=== PATIENT | female | born 1960 | race Caucasian/White ===

== ENCOUNTER 2016-11-05 21:21 | Observation (INO) | payer OTHER ==
--- NOTE | 2016-11-05 21:41 | CPEKG ---
Heart Rate: 74 RR Interval: 811 P-R Interval: 100 QRSD Interval: 78 QT Interval: 384 QTC Interval: 426 P Girdletree: 18 QRS Girdletree: 66 T Wave Gird[place]ree: 14 EKG Severity - BORDERLINE ECG - EKG Impression: SINUS RHYTHM EKG Impression: SHORT TN INTERVAL, ACCELERATED AV CONDUCTION Electronically Signed By: Edy Leiva 05-Nov-2016 23:54:56
--- NOTE | 2016-11-05 21:43 | EDPHY ---
H & P Stated Complaint: cp off and on x 4 days, fever, vomiting HPI/ROS: HPI CHIEF COMPLAINT: Chest pain, nausea, vomiting HISTORY OF PRESENT ILLNESS: this patient very pleasant 56-year-old female, significant past medical history for GERD, significant reflux however status post laparoscopic placement of a "link device" that prevents her from getting reflux. Patient presents emergency room with intermittent initially sharp stabbing substernal pain nonradiating she states on Friday this initially started. patient states that she had brief episodes of sharp stabbing pain she took ibuprofen and this went away on Friday it reoccurred on Friday she again took more ibuprofen and it went away. she tells me tonight around 630 she started developing nausea with acute onset of non bloody vomit, had 2 separate episodes of this 1 at 6:31 a.m. at 8:30 a.m., she began having ongoing nausea and then developed this chest pressure dull ache in the center of her chest. She still tells me that she has a heavy sensation in her chest. Denies radiation pain specifically jaw pain, neck pain, arm pain. Currently at this time she does have a heaviness in her chest with associated nausea.Denies any significant history of cardiac disease or CVA. Past Medical History: GERD Past Surgical History: , laparoscopic placement of a links device for reflux Social History: denies use of drugs alcohol tobacco products Family History: noncontributory ROS REVIEW OF SYSTEMS: A comprehensive 10 point review of systems is otherwise negative aside from elements mentioned in the history of present illness. Exam Constitutional triage nursing summary reviewed, vital signs reviewed, awake/ alert. Eyes normal conjunctivae and sclera, EOMI, PERRLA. HENT normal inspection, atraumatic, moist mucus membranes, no epistaxis, neck supple/ no meningismus, no raccoon eyes. Respiratory clear to auscultation bilaterally, normal breath sounds, no respiratory distress, no wheezing. Cardiovascular rate normal, regular rhythm, no murmur, no edema, distal pulses normal. Gastrointestinal soft, non-tender, no rebound, no guarding, normal bowel sounds, no distension, no pulsatile mass. Genitourinary no CVA tenderness. Musculoskeletal no midline vertebral tenderness, full range of motion, no calf swelling, no tenderness of extremities, no meningismus, good pulses, neurovascularly intact. Skin pink, warm, & dry, no rash, skin atraumatic. Neurologic awake, alert and oriented x 3, AAOx3, moves all 4 extremities equally, motor intact, sensory intact, CN II-XII intact, normal cerebellar, normal vision, normal speech. Psychiatric normal mood/affect. Heme/Lymph/Immune no lymphadenopathy. Differential diagnosis includes but is not limited to: ACS, atypical chest pain , pneumothorax, pneumonia, pulmonary embolism, aortic dissection, congestive heart failure, tumor, musculoskeletal pain, esophageal pain, GERD, peptic ulcer disease, pancreatitis Medical Decision Making:This patient had an IV established obtain blood work including cardiac marker troponin, EKG, chest x-ray showed an evaluation for ACS. She will be given a dose of nitro to see if this helps with her nausea and chest pressure. Re-evaluation: EKG interpretation by me on record in [employer] system. Impression Time of EKG 11/22/1940 this is sinus rhythm rate of 74, short DE interval otherwise unremarkable no acute ischemic changes specifically no ST elevation, ST depression, T-wave abnormality. ED x-ray chest: Hyperinflated lung goddard, good lung goddard, mediastinum narrow , cardiac silhouette normal, I do see the Links in the epigastric region. otherwise unremarkable. 2257: Re-evaluation at this time patient is resting comfortably are abdomen is soft nontender no guarding or peritoneal signs. Her EKG does not indicate acute ischemia. D-dimer and troponin are pending. I have admitted this patient to the hospitalist service Dr. epps for nausea, intermittent vomiting, and a pressure dull ache sensation in her chest. She did receive nitroglycerin which did not change her discomfort in her chest. 2307: I did speak with the patient and at bedside and they understand plan for admission is for chest pain evaluation serial enzymes ACS rule out. No indication at this time that she is having acute SC. I do not have a great explanation for nausea, 2 episodes of vomiting and chest pressure discomfort. After 2 mg IV morphine her chest pressure is gone she is now chest pain free. It is noted her troponin was negative EKG nonischemic her D-dimer is pending. Dr. Epps has accepted the admission to the hospitalist service. Patient be admitted for observation chest pain evaluation. Source: Patient - Personal History Current Tetanus Diphtheria and Acellular Pertussis (TDAP): Yes - Medical/Surgical History Hx Asthma: No Hx Chronic Respiratory Disease: No Hx Diabetes: No Hx Cardiac Disease: No Hx Renal Disease: No Hx Cirrhosis: No Hx Alcoholism: No Hx HIV/AIDS: No Hx Splenectomy or Spleen Trauma: No Other PMH: linx plate in esohopheal sphinter for GERD - Social History Smoking Status: Never smoked Constitutional: Initial Vital Signs Temperature (C) 37.4 C 11/05/16 21:24 Heart Rate 90 11/05/16 21:24 Respiratory Rate 20 11/05/16 21:24 Blood Pressure 132/89 H 11/05/16 21:24 O2 Sat (%) 93 11/05/16 21:24 O2 Delivery Mode Room Air Allergies/Adverse Reactions: erythromycin base Allergy (Verified 11/05/16 21:23) Home Medications: Medication Instructions Recorded Acyclovir [Zovirax 400 mg (*)] 400 mg PO BID PRN 11/06/16 Calcium Carbonate [Tums 500MG (*)] 500 mg PO TID PRN #0 tabchew 11/06/16 Herbals/Supplements -Info Only 1 ea PO DAILY 11/06/16 Multivitamins [Multivitamin (*)] 1 each PO DAILY 11/06/16 [place]-3 Fatty Acids [Fish Oil 1000 1,000 mg PO DAILY 11/06/16 mg (*)] Pantoprazole Sodium [Protonix 40mg 40 mg PO DAILY #30 tab 11/06/16 (*)] Medical Decision Making - Data Points Laboratory Results: Laboratory Results 11/05/16 22:00 11/05/16 22:00 Medications Given: Discontinued Medications Aspirin (Aspirin) 324 mg PO EDNOW ONE Stop: 11/05/16 23:00 Last Admin: 11/05/16 23:07 Dose: 324 mg Aspirin Buffered (Aspirin Ec) 325 mg PO ONCALL ONE Stop: 11/06/16 13:07 Last Admin: 11/06/16 15:50 Dose: Not Given Diazepam (Valium) 5 mg PO ONCALL ONE Stop: 11/06/16 13:07 Last Admin: 11/06/16 15:51 Dose: Not Given Diphenhydramine HCl (Benadryl) 25 mg PO ONCALL ONE Stop: 11/06/16 13:07 Last Admin: 11/06/16 15:51 Dose: Not Given Famotidine (Pepcid) 20 mg PO ONCALL ONE Stop: 11/06/16 13:07 Last Admin: 11/06/16 15:51 Dose: Not Given Sodium Chloride (Ns) 1,000 mls @ 0 mls/hr IV ONCE ONE PRN Reason: As Directed Stop: 11/05/16 21:45 Last Admin: 11/05/16 22:00 Dose: 1,000 mls Sodium Chloride (Ns) 1,000 mls @ 0 mls/hr IV ONCALL ONE PRN Reason: TKO Stop: 11/06/16 13:07 Last Admin: 11/06/16 15:51 Dose: Not Given Morphine Sulfate (Morphine) 2 mg IVP EDNOW ONE Stop: 11/05/16 22:30 Last Admin: 11/05/16 22:34 Dose: 2 mg Nitroglycerin (Nitrostat) 0.4 mg SL EDNOW ONE Stop: 11/05/16 21:59 Last Admin: 11/05/16 22:09 Dose: 0.4 mg Ondansetron HCl (Zofran) 4 mg IVP EDNOW ONE Stop: 11/05/16 21:59 Last Admin: 11/05/16 22:01 Dose: 4 mg Departure - Departure Disposition: [facility] Acute Clinical Impression: Chest pain Qualifiers: Chest pain type: unspecified Qualifier Code: (R07.9) Chest pain, unspecified Condition: Good
[2016-11-05] MEDS ORDERED: NS 1,000 ML IV ONE (21:44)
[2016-11-05] MEDS ORDERED: NITROGLYCERIN 0.4 MG BTL SL ONE (21:58)
[2016-11-05] MEDS ORDERED: ONDANSETRON 4 MG/2 ML VIAL IVP ONE (21:58)
[2016-11-05 22:27] LABS: % IMMATURE GRANULYOCYTES 0.3 % (0.0-1.1); ABSOLUTE IMMATURE GRANULOCYTES 0.02 10^3/uL (0.00-0.10); ADD DIFF? NO; ADD MORPH? NO; ADD SCAN? NO; ATYPICAL LYMPHOCYTE FLAG 0 (0-99); FRAGMENT RBC FLAG 0 (0-99); HEMATOCRIT 41.3 % (38.0-47.0); HEMOGLOBIN 14.3 g/dL (12.6-16.3); LEFT SHIFT FLG 0 (0-99); LIPEMIA HEMOLYSIS FLAG 90 (0-99); MEAN CELL HEMOGLOBIN CONCENTR. 34.6 g/dL (32.4-36.7); MEAN CELL VOLUME 83.8 fL (81.5-99.8); MEAN PLATELET VOLUME 9.3 fL (8.7-11.7); PLATELET CLUMPS FLAG 0 (0-99); PLATELET COUNT 220 10^3/uL (150-400); RED BLOOD CELL COUNT 4.93 10^6/uL (4.18-5.33); RED CELL DISTRIBUTION WIDTH 12.2 % (11.5-15.2)
[2016-11-05 22:33] LABS: ALANINE AMINOTRANSFERASE 33 IU/L (9-52); ALBUMIN 4.1 g/dL (3.5-5.0); ALKALINE PHOSPHATASE 64 IU/L (38-126); ANION GAP 12 mEq/L (8-16); ASPARTATE AMINOTRANSFERASE 21 IU/L (14-46); BILIRUBIN,TOTAL 0.7 mg/dL (0.1-1.4); BILIRUBIN-CONJUGATED 0.2 mg/dL (0.0-0.5); BILIRUBIN-UNCONJUGATED 0.5 mg/dL (0.0-1.1); CALCIUM 9.4 mg/dL (8.5-10.4); CARBON DIOXIDE 24 mEq/l (22-31); CHLORIDE 104 mEq/L (97-110); CREATININE 0.6 mg/dL (0.6-1.0); GLOMERULAR FILTRATION RATE > 60; GLUCOSE 106 mg/dL (70-100); MAGNESIUM 2.1 mg/dL (1.6-2.3); POTASSIUM 3.8 mEq/L (3.5-5.2); SODIUM 140 mEq/L (134-144); TOTAL PROTEIN 6.8 g/dL (6.3-8.2)
[2016-11-05 22:36] LABS: INR 1.12 (0.83-1.16); PROTIME(PATIENT) 14.3 SEC (12.0-15.0)
[2016-11-05 22:37] LABS: APTT 25.9 SEC (23.0-38.0)
[2016-11-05 22:45] LABS: CREATINE KINASE-MB FRACTION 0.66 ng/mL (0-3.19); TROPONIN I < 0.012 ng/mL (0-0.034)
[2016-11-05] MEDS ORDERED: ASPIRIN 81 MG CHEWABLE TAB PO ONE (22:59)
--- NOTE | 2016-11-05 23:29 | DX ---
Portable Chest, Single View November 05, 2016 Indication: Chest pain for 3 days. Findings: The lungs are clear. No pneumothorax, edema, consolidation or effusion. Heart size within n ormal limit for degree of inspiration. Several round radiodensities overlying the left upper abdomen are likely external to the patient. Impression: Negative portable chest.
[2016-11-06] MEDS ORDERED: HYDROCODONE/APAP 5/325 TAB PO PRN (02:24)
[2016-11-06] MEDS ORDERED: ONDANSETRON 4 MG/2 ML VIAL IVP PRN (02:24)
[2016-11-06] MEDS ORDERED: ONDANSETRON DISINTEGRATING 4 MG TAB PO PRN (02:24)
[2016-11-06] MEDS ORDERED: ACETAMINOPHEN 325 MG TAB PO PRN (02:24)
[2016-11-06 05:01] LABS: % IMMATURE GRANULYOCYTES 0.2 % (0.0-1.1); ABSOLUTE IMMATURE GRANULOCYTES 0.01 10^3/uL (0.00-0.10); ADD DIFF? NO; ADD MORPH? NO; ADD SCAN? NO; ATYPICAL LYMPHOCYTE FLAG 0 (0-99); FRAGMENT RBC FLAG 0 (0-99); HEMATOCRIT 38.4 % (38.0-47.0); HEMOGLOBIN 12.9 g/dL (12.6-16.3); LEFT SHIFT FLG 0 (0-99); LIPEMIA HEMOLYSIS FLAG 80 (0-99); MEAN CELL HEMOGLOBIN 29.4 pg (27.9-34.1); MEAN CELL HEMOGLOBIN CONCENTR. 33.6 g/dL (32.4-36.7); MEAN CELL VOLUME 87.5 fL (81.5-99.8); MEAN PLATELET VOLUME 9.7 fL (8.7-11.7); PLATELET CLUMPS FLAG 10 (0-99); PLATELET COUNT 196 10^3/uL (150-400); RED BLOOD CELL COUNT 4.39 10^6/uL (4.18-5.33); RED CELL DISTRIBUTION WIDTH 12.1 % (11.5-15.2)
[2016-11-06 05:17] LABS: ANION GAP 7 mEq/L (8-16); CALCIUM 8.7 mg/dL (8.5-10.4); CARBON DIOXIDE 26 mEq/l (22-31); CHLORIDE 107 mEq/L (97-110); CHOLESTEROL 175 mg/dL (140-220); CHOLESTEROL/HDL RATIO 4.38 RATIO (1.00-4.44); CREATININE 0.5 mg/dL (0.6-1.0); GLOMERULAR FILTRATION RATE > 60; GLUCOSE 90 mg/dL (70-100); HIGH DENSITY LIPOPROTEIN 40 mg/dL (40-85); LDL/HDL RATIO 3.13 RATIO (1.00-3.22); LOW DENSITY LIPOPROTEIN 125 mg/dL (80-100); NON-HIGH DENSITY LIPOPROTEIN 135 mg/dL (90-129); POTASSIUM 4.1 mEq/L (3.5-5.2); SODIUM 140 mEq/L (134-144); TRIGLYCERIDE 52 mg/dL (35-135); VERY LOW DENSITY LIPOPROTEINS 10 mg/dL (8-25)
--- NOTE | 2016-11-06 06:12 | PDGENHP ---
History and Physical - Chief Complaint chest pain - History of Present Illness Patient is a 56-year-old female with history of GERD who presents to the ED complaining of sharp epigastric and substernal chest pain. Patient states symptoms have been present intermittently for the past 3 days. She describes the pain as a burning sensation, worse with inspiration and ingestion of food or liquids. Once in her youth she had an episode of pleurisy which felt similar. She attempted to treat symptoms with ibuprofen, and describes a temporary improvement in symptoms. Patient and were planning to leave further Winter vacations [facility] (where they typically spend the winter ), but wanted her symptoms to be evaluated prior to leaving, so she decided to come to the ED. On arrival to the ED patient was afebrile and hemodynamically stable. ED investigation revealed normal CBC, BMP, troponin and nonischemic EKG. Chest x- ray was also unrevealing. She was given symptomatic treatment and admitted to the hospital service for further management History Information - Allergies/Home Medication List Allergies/Adverse Reactions: erythromycin base Allergy (Verified 11/05/16 21:23) Home Medications: NK [No Known Home Meds] 11/05/16 [Last Taken Unknown] I have personally reviewed and updated: family history, medical history, social history, surgical history - Past Medical History Additional medical history: Severe GERD, for which she has had a stomach implant in attempt to tight in lower esophageal sphincter tone - Surgical History Additional surgical history: Distal esophageal implant - Family History Additional family history: Father: [place] at 62 - Social History Smoking Status: Never smoked Alcohol Use: Rarely Drug Use: None Additional social history: Patient is retired, works in software. Lives with Review of Systems ROS: 10pt was reviewed & negative except for what was stated in HPI & below Physical Exam Temp Pulse Resp BP Pulse Ox 36.7 C 61 18 108/71 91 L 11/06/16 04:20 11/06/16 04:20 11/06/16 04:20 11/06/16 04:20 11/06/16 04:20 Constitutional: no apparent distress, appears nourished, not in pain Eyes: PERRL, anicteric sclera, EOMI Ears, Nose, Mouth, Throat: moist mucous membranes, hearing normal, ears appear normal, no oral mucosal ulcers Cardiovascular: regular rate and rhythym, no murmur, rub, or gallop, pulses symmetric bilaterally, other (Chest wall tenderness reproducible with palpation of lower sternum), No JVD, No edema Peripheral Pulses: 2+: dorsalis-pedis (R), dorsalis-pedis (L) Respiratory: no respiratory distress, no rales or rhonchi, clear to auscultation Gastrointestinal: normoactive bowel sounds, soft, non-tender abdomen, no palpable masses Genitourinary: no bladder fullness, no bladder tenderness Skin: warm, normal color, no rashes or abrasions, no fluctuance, no induration, No mottled Musculoskeletal: full muscle strength, no muscle tenderness, normal joint ROM, no joint effusions Neurologic: AAOx3, sensation intact bilaterally, CN II-XII Intact, No weakness, No numbness Lab Data & Imaging Review 11/06/16 04:00 11/06/16 04:00 WBC 4.98 10^3/uL (3.80-9.50) 11/06/16 04:00 RBC 4.39 10^6/uL (4.18-5.33) 11/06/16 04:00 Hgb 12.9 g/dL (12.6-16.3) 11/06/16 04:00 Hct 38.4 % (38.0-47.0) 11/06/16 04:00 MCV 87.5 fL (81.5-99.8) 11/06/16 04:00 MCH 29.4 pg (27.9-34.1) 11/06/16 04:00 MCHC 33.6 g/dL (32.4-36.7) 11/06/16 04:00 RDW 12.1 % (11.5-15.2) 11/06/16 04:00 Plt Count 196 10^3/uL (150-400) 11/06/16 04:00 MPV 9.7 fL (8.7-11.7) 11/06/16 04:00 Neut % (Auto) 65.1 % (39.3-74.2) 11/06/16 04:00 Lymph % (Auto) 22.7 % (15.0-45.0) 11/06/16 04:00 [place] % (Auto) 10.4 % (4.5-13.0) 11/06/16 04:00 Eos % (Auto) 1.0 % (0.6-7.6) 11/06/16 04:00 Baso % (Auto) 0.6 % (0.3-1.7) 11/06/16 04:00 Nucleat RBC Rel Count 0.0 % (0.0-0.2) 11/06/16 04:00 Absolute Neuts (auto) 3.24 10^3/uL (1.70-6.50) 11/06/16 04:00 Absolute Lymphs (auto) 1.13 10^3/uL (1.00-3.00) 11/06/16 04:00 Absolute Monos (auto) 0.52 10^3/uL (0.30-0.80) 11/06/16 04:00 Absolute Eos (auto) 0.05 10^3/uL (0.03-0.40) 11/06/16 04:00 Absolute Basos (auto) 0.03 10^3/uL (0.02-0.10) 11/06/16 04:00 Absolute Nucleated RBC 0.00 10^3/uL (0-0.01) 11/06/16 04:00 Immature Gran % 0.2 % (0.0-1.1) 11/06/16 04:00 Immature Gran # 0.01 10^3/uL (0.00-0.10) 11/06/16 04:00 PT 14.3 SEC (12.0-15.0) 11/05/16 22:00 INR 1.12 (0.83-1.16) 11/05/16 22:00 APTT 25.9 SEC (23.0-38.0) 11/05/16 22:00 D-Dimer 0.28 ug/mLFEU (0.00-0.50) 11/05/16 22:00 Sodium 140 mEq/L (134-144) 11/06/16 04:00 Potassium 4.1 mEq/L (3.5-5.2) 11/06/16 04:00 Chloride 107 mEq/L (97-110) 11/06/16 04:00 Carbon Dioxide 26 mEq/l (22-31) 11/06/16 04:00 Anion Gap 7 mEq/L (8-16) 11/06/16 04:00 BUN 14 mg/dL (7-23) 11/06/16 04:00 Creatinine 0.5 mg/dL (0.6-1.0) L 11/06/16 04:00 Estimated GFR > 60 11/06/16 04:00 Glucose 90 mg/dL (70-100) 11/06/16 04:00 Calcium 8.7 mg/dL (8.5-10.4) 11/06/16 04:00 Magnesium 2.0 mg/dL (1.6-2.3) 11/06/16 04:00 Total Bilirubin 0.7 mg/dL (0.1-1.4) 11/05/16 22:00 Conjugated Bilirubin 0.2 mg/dL (0.0-0.5) 11/05/16 22:00 Unconjugated Bilirubin 0.5 mg/dL (0.0-1.1) 11/05/16 22:00 AST 21 IU/L (14-46) 11/05/16 22:00 ALT 33 IU/L (9-52) 11/05/16 22:00 Alkaline Phosphatase 64 IU/L (38-126) 11/05/16 22:00 Creatine Kinase 42 IU/L (0-156) 11/05/16 22:00 CK-MB (CK-2) Fraction 0.66 ng/mL (0-3.19) 11/05/16 22:00 Troponin I < 0.012 ng/mL (0-0.034) 11/05/16 22:00 NT-Pro-B Natriuret Pep 227 pg/mL (0-125) H 11/05/16 22:00 Total Protein 6.8 g/dL (6.3-8.2) 11/05/16 22:00 Albumin 4.1 g/dL (3.5-5.0) 11/05/16 22:00 Triglycerides 52 mg/dL (35-135) 11/06/16 04:00 Cholesterol 175 mg/dL (140-220) 11/06/16 04:00 Cholesterol Risk Factr 1.0 (0.2-1.0) 11/06/16 04:00 LDL Cholesterol, Calc 125 mg/dL (80-100) H 11/06/16 04:00 LDL Risk Factor 1.0 (0.2-1.0) 11/06/16 04:00 VLDL Cholesterol 10 mg/dL (8-25) 11/06/16 04:00 Non-HDL Cholesterol 135 mg/dL (90-129) H 11/06/16 04:00 HDL Cholesterol 40 mg/dL (40-85) 11/06/16 04:00 LDL/HDL Ratio 3.13 RATIO (1.00-3.22) 11/06/16 04:00 Cholesterol/HDL Ratio 4.38 RATIO (1.00-4.44) 11/06/16 04:00 Lipase 136.0 IU/L (23-300) 11/05/16 22:00 TSH 0.787 uIU/mL (0.465-4.680) 11/06/16 04:00 Visualized and Interpreted Chest x-ray results: Yes Chest X-Ray results: no infiltrate, normal Visualized and Interpreted EKG results: Yes EKG Interpretation: Positive for: normal sinsus rhythm Assessment & Plan Assessment: Patient is a 56-year-old female with a history of GERD who presents to the ED complaining of substernal and epigastric pain. Plan: # chest pain Patient's description of pain does not appear consistent with cardiac etiology, ekg is nonischemic and troponin is negative. However, patient has positive family history of CAD. Differential also includes GERD, musculoskeletal, pleurisy. Will rule out ACS with serial troponins, repeat EKG and obtain exercise stress test in a.m. # GERD Pt states this has been well controlled recently, had recent pH monitoring that was normal. Currently takes no home meds. # dispo: admit under observation status # full code
--- NOTE | 2016-11-06 08:48 | CPEKG ---
Heart Rate: 59 RR Interval: 1017 P-R Interval: 140 QRSD Interval: 82 QT Interval: 416 QTC Interval: 413 P Goddard: 60 QRS Goddard: 64 T Wave Goddard: 38 EKG Severity - NORMAL ECG - EKG Impression: SINUS RHYTHM Electronically Signed By: Librado Sims 06-Nov-2016 09:09:04
--- NOTE | 2016-11-06 11:15 | ECHO ---
[id number] + + [phone] : : [place] [address] : : [phone] + + Adult Echocardiographic Report + ---------+ :Name: RUBY ROSENBERG WStudy Date: 11/06/2016 07:43 AM : : Hospital Admission Number: [id number] Dorothea johnson: 209: :: 1960 Gender: Female Height: 63 i n : :Age: 56 yrs Race: WH Weight: 106 lb : :Reason For Study: Chest pain, palpitations : : BSA: 1.5 met ers2 : :History: No previous : + ---------+ MMode/2D Measurements & Calculations IVSd: 0.85 cm LVIDd: 3.7 cm FS: 34.1 % LVOT diam: 1.9 cm LVPWd: 0.62 cm LVIDs: 2.4 cm EDV(Teich): LVOT area: 56.3 ml 2.9 cm2 ESV(Teich): 20.3 ml EF(Teich): 63.9 % LVLd ap4: 6.1 cm SV(MOD-sp4): EDV(MOD-sp4): 35.0 ml 52.0 ml LVLs ap4: 4.7 cm ESV(MOD-sp4): 17.0 ml EF(MOD-sp4): 67.3 % Normal Measurement Values: + + :LVIDd (3.5-5.7cm) IVSd (0.6-1.1cm) LVPWd (0.6-1.1cm) Aortic Root (2.0-3.7cm)Left Atrium (1.5-4.0cm): :LV Vol(d) (76-115ml) LV Vol(s) (29-48ml) Ejec Fraction (50-65%)PV Tian (0.6- 1.2m/s) TV Tian (0.4-1.0m/s) : :MV E Tian (0.8-1.0m/s)MV A Tian (0.3-1.0m/s)LVOT Tian (0.7-1.2m/s) Asc Ao Tian ( 0.9-1.8m/s) : + + Doppler Measurements & Calculations MV E max tian: MV V2 max: Ao mean P.6 mmHgLV V1 mean P.4 cm/sec 120.8 cm/sec Ao V2 mean: 1.0 mmHg MV A max tian: MV max P.9 cm/sec LV V1 mean: 58.7 cm/sec 5.8 mmHg Ao V2 VTI: 20.9 cm 45.8 cm/sec MV E/A: 1.5 MV V2 mean: JUAN(I,D): 2.4 cm2 LV V1 VTI: 17.3 cm MV dec time: 51.4 cm/sec 0.19 sec MV mean P.5 mmHg MV V2 VTI: 34.7 cm MVA(VTI): 1.4 cm2 SV(LVOT): 49.9 ml PA V2 max: PI end-d tian: TR max tian: 74.7 cm/sec 101.1 cm/sec 286.4 cm/sec PA max PG: TR max P.2 mmHg 32.8 mmHg RAP systole: 10.0 mmHg RVSP(TR): 42.8 mmHg Left Ventricle The left ventricle is normal in size and function. There is normal left ventricular wall thickness. Ejection Fraction = 60-65%. Normal diastolic function. No regional wall motion abnormalities noted. Right Ventricle The right ventricle is normal in size and function. Atria The left atrial size is normal. Right atrial size is normal. Mitral Valve Mild anterior mitral valve leaflet thickening. There is no mitral valve stenosis. There is trace mitral regurgitation. Tricuspid Valve The tricuspid valve is normal in structure and function. There is no tricuspid stenosis. There is mild tricuspid regurgitation. Right ventricular systolic pressure is normal. Aortic Valve The aortic valve is not well visualized. There is no aortic stenosis. There is no aortic insufficiency. Pulmonic Valve The pulmonic valve is normal in structure and function. There is no pulmonic valvular stenosis. Mild pulmonic valvular regurgitation. Great Vessels The aortic root is normal size. Pericardium/Pleural There is a fat pad seen. trivial pericardial effusion. Conclusion A complete two-dimensional transthoracic echocardiogram was performed (2D, M-mode, Doppler and color flow Doppler). The left ventricle is normal in size and function. Ejection Fraction = 60-65%. Normal LV wall motion Normal diastolic function There is trace mitral regurgitation. There is mild tricuspid regurgitation. Right ventricular systolic pressure is normal. The aortic valve is not well visualized. No or AR Mild pulmonic valvular regurgitation. trivial pericardial effusion. No prior echo Final Reading Physician: Dr Samia Pichrado electronically signed on 11/06/2016 11:13 AM Ordering Physician: Dori Garcia Performed By: Germaine Raphael
[2016-11-06] MEDS ORDERED: LIDOCAINE 1% 30 ML SDV ONE (13:04)
[2016-11-06] MEDS ORDERED: VERAPAMIL 5 MG/2 ML VIAL ONE (13:05)
[2016-11-06] MEDS ORDERED: MIDAZOLAM 2 MG/2 ML VIAL ONE (13:05)
[2016-11-06] MEDS ORDERED: fentaNYL 100 MCG/2 ML INJ ONE (13:05)
[2016-11-06] MEDS ORDERED: HEPARIN 10,000 UNIT/10 ML MDV ONE (13:05)
[2016-11-06] MEDS ORDERED: NS 1,000 ML IV ONE (13:06)
[2016-11-06] MEDS ORDERED: FAMOTIDINE 20 MG TAB PO ONE (13:06)
[2016-11-06] MEDS ORDERED: ASPIRIN EC 325 MG TAB PO ONE ×2 (13:06→13:15)
[2016-11-06] MEDS ORDERED: diphenhydrAMINE 25 MG CAP PO ONE ×2 (13:06→13:14)
[2016-11-06] MEDS ORDERED: IOPAMIDOL (ISOVUE 370) 100 ML BTL IV ONE ×2 (13:06)
[2016-11-06] MEDS ORDERED: DIAZEPAM 5 MG TAB PO ONE (13:06)
[2016-11-06] MEDS ORDERED: FAMOTIDINE 20 MG TAB ONE (13:15)
[2016-11-06] MEDS ORDERED: DIAZEPAM 5 MG TAB ONE (13:15)
--- NOTE | 2016-11-06 13:55 | CPR ---
[f rep st] NONINVASIVE CARDIAC PROCEDURE REPORT DATE OF PROCEDURE: 11/06/2016 ORDERING PHYSICIAN: Dori Garcia MD, hospitalist. REASON FOR TEST: 1. Chest pain. 2. Nausea. 3. Lightheadedness. CARDIAC RISK FACTORS: Negative for hypertension. Negative for hyperlipidemia. Negative for diabetes mellitus. Negative for tobacco abuse. Positive for premature coronary artery disease in her father. REST PORTION: Resting EKG shows a regular sinus rhythm with a rate of 82. There are no ischemic changes. Right axis deviation noted. No ectopy is noted. Resting blood pressure 98/62. Oxygen saturation 94%. EXERCISE PORTION: She was exercised according to the Jey protocol for a total of 3 minutes and 13 seconds. MET level reached 4.7. Maximal blood pressure 128/78. Maximal heart rate 103. Treadmill was stopped at that time due to nausea, sudden-onset lightheadedness. No chest pain. She did have dry heaves but no emesis. EKG showed inferior ST depression of 1-2 mm. Her blood pressure remained stable at 108/76. Heart rate 85. Dr. Streeter was asked to consult and reviewed the EKG tracings, examined Verena with recommendation to proceed for further cardiac testing with a cardiac angiogram. She is in agreement with this. She will be transferred to the CV for a cardiac angiogram. She is stable at this time. /[id number]/MODL MTDD
--- NOTE | 2016-11-06 14:15 | GHP ---
[f rep st] HISTORY AND PHYSICAL DATE OF ADMISSION: 11/05/2016 CHIEF COMPLAINT: 1. Chest pain. 2. Nausea. We are asked by [facility] to further evaluate chest pain etiology. She was taken for a treadmill stress test, which she was not able to complete due to nausea and light headedness after 3 minutes and 13 seconds on the treadmill. Dr. Streeter recommended further evaluat ion with cardiac angiogram due to EKG changes showing ST depression of 1-2 mm in the inferior leads. HISTORY OF PRESENT ILLNESS: This is a 56-year-old female with a history of GERD. She had experience d symptoms over the last 3 days of epigastric discomfort, nausea, and lightheadedness. She went to [facility] emergency room last evening complaining of sharp epigastric pain, substernal chest pain. She desc ribed the pain as a burning sensation. She reported that she does notice the symptoms more when she has eaten. At this time, she has been n.p.o. for further cardiac testing since midnight. She has re mained hemodynamically stable. She did have a series of testing done in the emergency room last even ing, having a normal CBC, BMP, troponin, and nonischemic EKG. She additionally had a chest x-ray milka t was normal. She was admitted to the [facility] for further observation and evaluation. MEDICATION LIST: No home medications. ALLERGIES: Erythromycin. PAST MEDICAL HISTORY: Severe GERD. She has had a stomach implant in an attempt to tighten the lower esophageal sphincter tone. SURGICAL HISTORY: Distal esophageal implant. FAMILY HISTORY: Father had an NH at age 62. SOCIAL HISTORY: She is . Lives with her . She has never smoked. Alcohol use is rare . No illicit drug use. REVIEW OF SYSTEMS: Negative except chest discomfort, nausea, and lightheadedness. PHYSICAL EXAMINATION: VITAL SIGNS: Blood pressure on admission 108/71, pulse 61 and regular, pulse oximeter 91%. CONSTITUTIONAL: She is in no distress. CARDIOVASCULAR: Heart rate is regular. No m urmurs, rubs, or gallops. No JVD. No edema. RESPIRATORY: Normal breath sounds. No rales or rhonc hi noted. SKIN: Warm and dry. NEUROLOGICAL: No weakness. No numbness. She is alert and oriented x3. LAB WORK: WBC at 4.98, hemoglobin 12.9, hematocrit 38.4, platelet count 196. D-dimer 0.28, sodium 1 40, potassium 4.1, BUN 14, creatinine 0.5, glucose 90, magnesium 2.0. AST 21, ALT 33. Alkaline phos phatase 64. CK-MB fraction 0.66. Troponin less than 0.012. NT pro B-natriuretic peptide 227. Lipi ds: Total cholesterol 175, triglycerides 52, LDL calculated 125, HDL 40. Lipase 136, TSH 0.787. EK G showed a normal sinus rhythm. EKG with max stress showed inferior 1-[address]-depression. PLAN: Due to the abnormal EKG and her symptoms of nausea, lightheadedness, and chest discomfort, it is recommended that she proceed with a cardiac angiogram. She is in agreement with this plan. Dr. Mckayla Streeter has visited with her and examined her. At this time she currently is stable. /[id number]/MODL
[2016-11-06] MEDS ORDERED: ACYCLOVIR 400 MG TAB PO PRN (15:56)
--- NOTE | 2016-11-06 17:13 | PDDCSUM ---
Discharge Summary Discharge Summary: DISCHARGE SUMMARY FOLLOW-UP ITEMS: Outpatient EGD DATE OF ADMISSION: 11/05/2016 DATE OF DISCHARGE: 11/06/2016 DISCHARGE DIAGNOSES: 1. Suspected GERD 2. Acute chest pain CONSULTATIONS: Cardiology PROCEDURES / IMAGING: Cardiac catheterization demonstrating no significant coronary artery disease, echocardiogram demonstrating no focal wall motion abnormalities, trivial pericardial effusion, normal RVSP, normal left ventricular ejection fraction no evidence of diastolic dysfunction CHIEF COMPLAINT: Acute chest pain SUBJECTIVE: No longer experiencing acute chest pain PHYSICAL EXAM ON DISCHARGE: Systolic blood pressure is 110, heart rate 60s, afebrile overnight, satting well on room air, alert awake oriented x3, pain level 0 10, well-appearing woman without any tachypnea LABS ON DISCHARGE: Troponin negative x2, D-dimer negative, LDL 125, creatinine 0.5, white blood count 5000, hemoglobin 12.9 HOSPITAL COURSE BY PROBLEM: 1. Suspected GERD. Most likely cause of patient's chest discomfort is either GERD versus achalasia or esophageal stricture, with the patient experiencing her most significant symptoms kanu-prandially. That being said, she does report a history of what sounds like Zenker's diverticulum and she has been seen by Dr. Brownlee in the outpatient setting. It is unclear whether the origin of patient's symptoms are simply from acid reflux versus a mildly obstructive condition versus diverticulum, and I have recommended an upper endoscopy as further workup. In the interval, I have recommended that the patient utilize a proton pump inhibitor and as-needed times were needed in for symptomatic relief. Given that the patient's symptoms are intermittent and are not providing her from eating and drinking, I do not believe that the patient requires emergent inpatient upper endoscopy at this time. Have recommended that the patient undergo this procedure prior to traveling to an area with a less availability of healthcare resources. 2. Acute chest pain. Atypical, most likely secondary to above, ruled out for acute coronary syndrome with negative troponins and no ischemic changes on EKG. She was ruled out for obstructive coronary disease after she underwent a cardiac catheterization which was performed after she experienced a false positive EKG exercise stress test. She was ruled out for pulmonary embolism with a negative D-dimer. She was ruled out for any other pericardial cause with a normal echocardiogram. DISCHARGE MEDICATIONS: Please see official discharge medication reconciliation sheet in chart , continue all home medications with the addition of pantoprazole 40 mg daily as well as needed times and ranitidine DISCHARGE INSTRUCTIONS: Please schedule follow-up outpatient EGD with either Dr. Brownlee or Dr. Warner.
[2016-11-07] MEDS ORDERED: Herbals/Supplements -Info Only PO SCH (09:00)
[2016-11-07] MEDS ORDERED: OMEGA-3 FATTY ACIDS 1,000 MG CAP PO SCH (09:00)
[2016-11-07] MEDS ORDERED: MULTIVITAMINS 1 EACH TAB PO SCH (09:00)
[2016-11-07] MEDS ORDERED: CALCIUM CARBONATE 500 MG CHEWABLE TAB PO PRN (09:20)
[2016-11-07] MEDS ORDERED: PANTOPRAZOLE SODIUM 40 MG TAB PO SCH (09:30)
--- NOTE | 2016-11-07 10:04 | PDDCSUM ---
Discharge Summary Discharge Summary: DISCHARGE SUMMARY FOLLOW-UP ITEMS: Outpatient EGD DATE OF ADMISSION: 11/05/2016 DATE OF DISCHARGE: 11/07/2016 DISCHARGE DIAGNOSES: 1. Suspected GERD, possible achalasia 2. Acute chest pain CONSULTATIONS: Cardiology PROCEDURES / IMAGING: Cardiac catheterization demonstrating no significant coronary artery disease, echocardiogram demonstrating no focal wall motion abnormalities, trivial pericardial effusion, normal RVSP, normal left ventricular ejection fraction no evidence of diastolic dysfunction CHIEF COMPLAINT: Acute chest pain SUBJECTIVE: No longer experiencing acute chest pain PHYSICAL EXAM ON DISCHARGE: Systolic blood pressure is 110, heart rate 60s, afebrile this AM, satting well on room air, alert awake oriented x3, pain level 0 10, well-appearing woman without any tachypnea LABS ON DISCHARGE: Troponin negative x2, D-dimer negative, LDL 125, creatinine 0.5, white blood count 5000, hemoglobin 12.9 HOSPITAL COURSE BY PROBLEM: 1. Suspected GERD. Most likely cause of patient's chest discomfort is either GERD versus achalasia or esophageal stricture, with the patient experiencing her most significant symptoms kaun-prandially. That being said, she does report a history of what sounds like Zenker's diverticulum and she has been seen by Dr. Brownlee in the outpatient setting. It is unclear whether the origin of patient's symptoms are simply from acid reflux versus a mildly obstructive condition versus diverticulum, and I have recommended an upper endoscopy as further workup. A recent pH monitoring test was reportedly normal, so EGD should be performed to determine whether there is any degree of inflammation at the distal esophagus vs. stricture requiring dilation vs. inflammed diverticulum. In the interval, I have recommended that the patient utilize a proton pump inhibitor and as-needed times were needed in for symptomatic relief. Given that the patient's symptoms are intermittent and are not providing her from eating and drinking, I do not believe that the patient requires emergent inpatient upper endoscopy at this time. Have recommended that the patient undergo this procedure prior to traveling to an area with a less availability of healthcare resources. 2. Acute chest pain. Atypical, most likely secondary to above, ruled out for acute coronary syndrome with negative troponins and no ischemic changes on EKG. She was ruled out for obstructive coronary disease after she underwent a cardiac catheterization which was performed after she experienced a false positive EKG exercise stress test. She was ruled out for pulmonary embolism with a negative D-dimer. She was ruled out for any other pericardial cause with a normal echocardiogram. It is possible that she has kanu-viral inflammation and pain, and I have recommended consideration of NSAIDs if upper GI work-up above is completely normal. 3. Fever. Most likely 2/2 post-cath inflammation vs. subclinical viral infxn, resolved w/o intervention. DISCHARGE MEDICATIONS: Please see official discharge medication reconciliation sheet in chart , continue all home medications with the addition of pantoprazole 40 mg daily as well as needed times and ranitidine DISCHARGE INSTRUCTIONS: Please schedule follow-up outpatient EGD with either Dr. Brownlee or Dr. Warner.
[2016-11-07 12:27] VITALS: BP 126/70; PULSE 85; RESP 20; TEMP 99; O2SAT 95
== END 2016-11-07 13:40 | disposition home or self-care (01) ==
LOC: F2W 11-06 00:08
PROVIDERS: ADMIT Internal Medicine; ATTEND Internal Medicine
PROC: 4A023N7 Measurement of Cardiac Sampling and Pressure, Left Heart, Percutaneous Approach (ICD-10-PCS; principal; 2016-11-05)
PROC: B2151ZZ Fluoroscopy of Left Heart using Low Osmolar Contrast (ICD-10-PCS; 2016-11-05)
PROC: B2111ZZ Fluoroscopy of Multiple Coronary Arteries using Low Osmolar Contrast (ICD-10-PCS; 2016-11-05)
PROC: B246ZZZ Ultrasonography of Right and Left Heart (ICD-10-PCS; 2016-11-05)
DX: R07.9 Chest pain, unspecified (principal); K21.9 Gastro-esophageal reflux disease without esophagitis; R11.2 Nausea with vomiting, unspecified; R50.9 Fever, unspecified; R42 Dizziness and giddiness; R94.31 Abnormal electrocardiogram [ECG] [EKG]; Z82.49 Family history of ischemic heart disease and other diseases of the circulatory system; Z96.9 Presence of functional implant, unspecified; Z88.1 Allergy status to other antibiotic agents
CPT/HCPCS: 71010; 93005; 93017; 93306; 93458; 96361; 96374; 96375; 99285; C1769; G0378; J1644; J2250; J2405; J3010; Q9967

== ENCOUNTER 2017-07-24 08:11 | Emergency (ER) | payer OTHER ==
--- NOTE | 2017-07-24 08:17 | EDPHY ---
H & P Time Seen by Provider: 07/24/17 08:16 HPI/ROS: CHIEF COMPLAINT: Scalp laceration HISTORY OF PRESENT ILLNESS: The patient presents to the emergency department after a scalp laceration. She hit her head on the bottom of a deck at her house today. The patient denies loss of consciousness. She denies headache. She denies any anticoagulant use. She denies any neck pain or additional traumatic injury. The patient reports her tetanus shot is up-to-date. REVIEW OF SYSTEMS: A comprehensive 10 point review of systems is otherwise negative aside from elements mentioned in the history of present illness. Source: Patient Exam Limitations: No limitations - Medical/Surgical History Hx Asthma: No Hx Chronic Respiratory Disease: No Hx Diabetes: No Hx Cardiac Disease: No Hx Renal Disease: No Hx Cirrhosis: No Hx Alcoholism: No Hx HIV/AIDS: No Hx Splenectomy or Spleen Trauma: No Other PMH: linx plate in esohopheal sphinter for GERD - Social History Smoking Status: Never smoked - Physical Exam Exam: General Appearance: Alert, no distress Head: 3 cm scalp laceration noted, no galea involvement, no hematoma, no bony crepitus Eyes: Pupils equal, round, reactive ENT, Mouth: No hemotympanum, no oral trauma Neck: Nontender, trachea midline Neurological: GCS 15 Constitutional: Initial Vital Signs Temperature (C) 37.1 C 07/24/17 08:15 Heart Rate 86 07/24/17 08:15 Respiratory Rate 16 07/24/17 08:15 Blood Pressure 106/74 07/24/17 08:15 O2 Sat (%) 97 07/24/17 08:15 Allergies/Adverse Reactions: erythromycin base Allergy (Intermediate, Verified 07/24/17 08:17) SOB Home Medications: Medication Instructions Recorded Omeprazole [Prilosec 20 mg] 20 mg PO DAILY 07/24/17 Medical Decision Making Procedures: Procedure: Laceration repair. Verbal consent was obtained from the patient. The 3 cm laceration on the scalp was anesthetized using lidocaine with epinephrine. The wound was irrigated per protocol, draped and explored to its base with a gloved finger. There were no deep structures involved. The wound was repaired with patricia. The wound repair was simple. The procedure was performed by myself. Departure - Departure Disposition: Home, Routine, Self-Care Clinical Impression: Scalp laceration Condition: Good Instructions: Laceration (ED) Additional Instructions: 1. Return to the emergency department in 7 days for staple removal. 2. Return to the ED sooner for severe headache, vomiting, increasing pain or other concerns. Referrals: Verena Wesley MD [Primary Care Provider] - As per Instructions
[2017-07-24 08:20] VITALS: BP 106/74; PULSE 86; RESP 16; TEMP 98.8; O2SAT 97
== END 2017-07-24 08:45 | disposition home or self-care (01) ==
PROC: 0HQ0XZZ Repair Scalp Skin, External Approach (ICD-10-PCS; principal; 2017-07-24)
DX: S01.01XA Laceration without foreign body of scalp, initial encounter (principal); W22.8XXA Striking against or struck by other objects, initial encounter; Y92.009 Unspecified place in unspecified non-institutional (private) residence as the place of occurrence of the external cause

== ENCOUNTER → 2019-02-22 | Outpatient (CLI) | payer OTHER | LOC: FIMAGING 10:11 | PROVIDERS: ATTEND Family Medicine | DX: Z12.31 Encounter for screening mammogram for malignant neoplasm of breast (principal); R92.8 Other abnormal and inconclusive findings on diagnostic imaging of breast ==

== ENCOUNTER → 2019-03-19 | Outpatient (CLI) | payer OTHER | LOC: BMCIMAGING 10:15 | PROVIDERS: ATTEND Family Medicine | DX: R92.8 Other abnormal and inconclusive findings on diagnostic imaging of breast (principal) ==